=== PATIENT | male | born 1970 | race Caucasian/White ===

== ENCOUNTER 2019-06-30 06:47 | Emergency (ER) | payer SELFPAY ==
[2019-06-30] MEDS ORDERED: Diphtheria,Pertussis(Acell),Tetanus Vaccine 0.5 ML Syringe IM ONE (07:06)
[2019-06-30] MEDS ORDERED: Lidocaine 1% 10 ML MDV INJECT ONE (07:07)
--- NOTE | 2019-06-30 07:12 | EDM.PDOC ---
ED HPI GENERAL MEDICAL PROBLEM - General Chief Complaint: Laceration Stated Complaint: R INDEX FINGER LAC Time Seen by Provider: 06/30/19 07:04 Source of Information: Reports: Patient History Limitations: Reports: No Limitations - History of Present Illness INITIAL COMMENTS - FREE TEXT/NARRATIVE: The patient presents with a laceration to the right index finger. He was working on a small wheel. He was putting some air in it and it gave way and hit his right index finger. He has a 1cm laceration to the right index finger on the dorsal aspect over the PIP joint. He has good movement and sensation distally. His tetanus is not up to date. Onset: Sudden Duration: Minutes: Location: Reports: Upper Extremity, Right (index finger) Quality: Reports: Sharp Severity: Mild Improves with: Reports: None Worsens with: Reports: None Associated Symptoms: Reports: No Other Symptoms Right Finger-Index Pain Score (Numeric/FACES): 5 - Related Data Allergies Allergy/AdvReac Type Severity Reaction Status Date / Time cephalexin [From Keflex] Allergy Diarrhea Verified 06/30/19 07:03 Home Meds: Home Meds Testosterone Cypionate [Depo-Testosterone] 1 injection IM ASDIRECTED 06/30/19 [ History] Past Medical History - Past Surgical History GI Surgical History: Reports: Hernia Repair/Other Social & Family History - Tobacco Use Smoking Status *Q: Never Smoker - Caffeine Use Caffeine Use: Reports: Coffee - Recreational Drug Use Recreational Drug Use: No ED ROS GENERAL - Review of Systems Review Of Systems: See Below Constitutional: Reports: No Symptoms HEENT: Reports: No Symptoms Respiratory: Reports: No Symptoms Cardiovascular: Reports: No Symptoms Endocrine: Reports: No Symptoms GI/Abdominal: Reports: No Symptoms : Reports: No Symptoms Musculoskeletal: Reports: Other (Laceration to the right index finger) ED EXAM, SKIN/RASH Exam: See Below Exam Limited By: No Limitations General Appearance: Alert, No Apparent Distress Ears: Normal External Exam Nose: Normal Inspection Head: Atraumatic, Normocephalic Neck: Normal Inspection Respiratory/Chest: No Respiratory Distress Extremities: Other (1cm laceration to the right index finger on the volar side over the PIP joint. Good sensation and capillary refill distall and good strenght to the finger. No tendon laceration noted.) ED SKIN PROCEDURES - Laceration/Wound Repair Right Digit - 2nd (Index) Appearance: Subcutaneous, Linear Distal NVT: Neuro & Vascular Intact, No Tendon Injury Anesthetic Type: Local Local Anesthesia - Lidocaine (Xylocaine): 1% Plain Skin Prep: Saline Exploration/Debridement/Repair: Wound Explored, In a Bloodless Field, Explored to Base Closed with: Sutures Lac/Wound length In cm: 2 Suture Size: 4-0 # of Sutures: 2 Suture Type: Nylon, Interrupted, Simple Tetanus Status Addressed: Yes Complications: No Course - Vital Signs Last Recorded V/S: Last Vital Signs Temp 98.4 F 06/30/19 06:59 Pulse 84 06/30/19 06:59 Resp 13 06/30/19 06:59 BP 128/82 06/30/19 06:59 Pulse Ox 100 06/30/19 06:59 - Orders/Labs/Meds Orders: Active Orders 24 hr Category Date Time Status Vaccines to be Administered [RC] PER UNIT ROUTINE Care 06/30/19 07:06 Active Meds: Medications Discontinued Medications Generic Name Dose Route Start Last Admin Trade Name Freq PRN Reason Stop Dose Admin Diphtheria/Tetanus/Acell Pertussis 0.5 ml 06/30/19 07:06 06/30/19 07:16 Adacel IM 06/30/19 07:07 0.5 ml .ONCE ONE Administration Lidocaine HCl 10 ml 06/30/19 07:07 06/30/19 07:15 Xylocaine 1% INJECT 06/30/19 07:08 10 ml ONETIME ONE Administration - Re-Assessments/Exams Free Text/Narrative Re-Assessment/Exam: 06/30/19 07:34 I ordered a tetanus. Departure - Departure Time of Disposition: 07:35 Disposition: Home, Self-Care 01 Condition: Good Clinical Impression: Laceration - Discharge Information *PRESCRIPTION DRUG MONITORING PROGRAM REVIEWED*: No *COPY OF PRESCRIPTION DRUG MONITORING REPORT IN PATIENT GAMA: No Referrals: PCP,Not In Area [Primary Care Provider] - Marybeth Ricketts PA-C [Physician Control Valve Technician] - 1 Week Forms: ED Department Discharge Additional Instructions: Soak your finger in warm soapy water and apply antibiotic ointment after. Have the sutures removed in 1 week. Look for any signs of infection such as redness , swelling, pain or drainage. If you see any of these signs, please return. You may need oral antibiotic. Please return if you are worse. - My Orders Last 24 Hours: My Active Orders 06/30/19 07:06 Vaccines to be Administered [RC] PER UNIT ROUTINE - Assessment/Plan Last 24 Hours: My Active Orders 06/30/19 07:06 Vaccines to be Administered [RC] PER UNIT ROUTINE
== END 2019-06-30 08:05 | disposition home or self-care (01) ==
LOC: JD.ED 06:47
DX: S61.210A Laceration without foreign body of right index finger without damage to nail, initial encounter (principal); Z23 Encounter for immunization; Z88.1 Allergy status to other antibiotic agents; W22.8XXA Striking against or struck by other objects, initial encounter
CPT/HCPCS: 12001; 90471; 90700; 99282; J2001